=== PATIENT | female | born 1975 | race Caucasian/White ===

== ENCOUNTER 2016-08-11 17:21 | Inpatient (IN) | payer SELFPAY ==
[2016-08-11] MEDS ORDERED: HYDROCODONE/ACETAMINOPHEN 5-325 MG TABLET PO ONE (17:43)
--- NOTE | 2016-08-11 17:50 | ER Document Report ---
ED GI/ - General Chief Complaint: Flank Pain Stated Complaint: ABDOMINAL/BACK PAIN Time Seen by Provider: 08/11/16 17:38 Notes: The patient is a 40-year-old female, past medical history endometriosis, partial hysterectomy with removal of her uterus and one of her ovaries, PCOS, presents with intermittent right flank pain that is now constant. She has not had pain like this before. She denies dysuria, hematuria, current nausea or vomiting, diarrhea, constipation, fevers, vaginal bleeding or discharge. TRAVEL OUTSIDE OF THE [place] IN LAST 30 DAYS: No - Related Data Allergies/Adverse Reactions: No Known Allergies Allergy (Unverified 08/11/16 17:38) Past Medical History - General Information source: Patient - Social History Smoking Status: Current Every Day Smoker Family History: Reviewed & Not Pertinent Patient has suicidal ideation: No Patient has homicidal ideation: No Renal/ Medical History: Denies: Hx Peritoneal Dialysis Review of Systems - Review of Systems Notes: REVIEW OF SYSTEMS: CONSTITUTIONAL: -fevers, -chills EENT: -eye pain, -difficulty swallowing, -nasal congestion CARDIOVASCULAR:-chest pain, -syncope. RESPIRATORY: -cough, -SOB GASTROINTESTINAL: -abdominal pain, - nausea, -vomiting, -diarrhea GENITOURINARY: -dysuria, -hematuria MUSCULOSKELETAL: +right flank pain, -neck pain SKIN: -rash or skin lesions. HEMATOLOGIC: -easy bruising or bleeding. LYMPHATIC: -swollen, enlarged glands. NEUROLOGICAL: -altered mental status or loss of consciousness, -headache, - neurologic symptoms PSYCHIATRIC: -anxiety, -depression. ALL OTHER SYSTEMS REVIEWED AND NEGATIVE. Physical Exam - Vital signs Vitals: Temp Pulse Resp BP Pulse Ox 97.5 F 115 H 20 102/78 97 08/11/16 17:31 08/11/16 17:31 08/11/16 17:31 08/11/16 17:31 08/11/16 17:31 - Notes Notes: PHYSICAL EXAMINATION: GENERAL: Uncomfortable. HEAD: Atraumatic, normocephalic. EYES: Pupils equal round and reactive to light, extraocular movements intact, sclera anicteric, conjunctiva are normal. ENT: nares patent, oropharynx clear without exudates. Moist mucous membranes. NECK: Normal range of motion, supple without lymphadenopathy LUNGS: Breath sounds clear to auscultation bilaterally and equal. No wheezes rales or rhonchi. HEART: Tachycardic ABDOMEN: Soft, nontender, normoactive bowel sounds. No guarding, no rebound. No masses appreciated. No CVA tenderness. EXTREMITIES: Normal range of motion, no pitting or edema. No cyanosis. NEUROLOGICAL: Cranial nerves grossly intact. Normal speech, normal gait. Normal sensory and motor exams. PSYCH: Normal mood, normal affect. SKIN: Warm, Dry, normal turgor, no rashes or lesions noted. Course - Re-evaluation Re-evalutation: 08/11/16 19:19 Pt remains tachycardic and in pain. She has a leukocytosis with WBCs 43.4, the rest of her labs are unremarkable and her CT scan without contrast does not show any acute processes. She has never been told that she has an elevated white count before. Will obtain CT with contrast to assess for any intraabdominal abscesses or any other acute processes. Lipase also added. Pt will also be transferred to main side of the ER for further evaluation and treatment. I have greeted and performed a rapid initial assessment of this patient. A comprehensive ED assessment and evaluation of the patient, analysis of test results and completion of the medical decision making process will be conducted by additional ED providers. - Vital Signs Vital signs: Temp Pulse Resp BP Pulse Ox 97.5 F 115 H 20 102/78 97 08/11/16 17:31 08/11/16 17:31 08/11/16 17:31 08/11/16 17:31 08/11/16 17:31 - Laboratory Result Diagrams: 08/11/16 17:56 08/11/16 17:56 Laboratory results interpreted by me: 08/11/16 08/11/16 08/11/16 17:56 17:56 18:13 WBC 43.4 H* RBC 5.39 H MCV 79 L MCH 26.1 L RDW 18.5 H Seg Neuts % (Manual) 88 H Lymphocytes % (Manual) 4 L Abs Neuts (Manual) 39.5 H Abs Monocytes (Manual) 2.2 H Glucose 123 H Urine Protein 30 H Ur Leukocyte Esterase SMALL H - Diagnostic Test Radiology reviewed: Image reviewed, Reports reviewed Radiology results interpreted by me: CT A/P W/O: NAD
[2016-08-11 18:38] LABS: ALANINE AMINOTRANSFERASE 23 U/L (9-52); ALBUMIN 4.4 g/dL (3.5-5.0); ALKALINE PHOSPHATASE 71 U/L (38-126); ANION GAP 15 (5-19); ASPARTATE AMINO TRANSFERASE 17 U/L (14-36); BILIRUBIN,DIRECT 0.3 mg/dL (0.0-0.4); BILIRUBIN,TOTAL 0.7 mg/dL (0.2-1.3); BLOOD UREA NITROGEN 18 mg/dL (7-20); CALCIUM 9.9 mg/dL (8.4-10.2); CARBON DIOXIDE 22 mmol/L (22-30); CHLORIDE 101 mmol/L (98-107); CREATININE RESULT 0.77 mg/dL (0.52-1.25); GLUCOSE 123 mg/dL (75-110); POTASSIUM 4.3 mmol/L (3.6-5.0); SODIUM 138.2 mmol/L (137-145); TOTAL PROTEIN 7.8 g/dL (6.3-8.2)
[2016-08-11 18:38] LABS: APPEARANCE,URINE CLOUDY; BILIRUBIN,URINE NEGATIVE (NEGATIVE); GLUCOSE, URINE NEGATIVE (NEGATIVE); KETONES,URINE NEGATIVE (NEGATIVE); LEUKOCYTE ESTERASE,URINE SMALL (NEGATIVE); NITRITE,URINE NEGATIVE (NEGATIVE); PROTEIN,URINE 30 mg/dL (NEGATIVE); URINE SPECIFIC GRAVITY 1.027; UROBILINOGEN,URINE NEGATIVE mg/dL (<2.0)
[2016-08-11 18:42] LABS: HEMATOCRIT 42.7 % (36.0-47.0); HEMOGLOBIN 14.1 g/dL (12.0-15.5); HGB HCT DIFFERENCE -0.4; MEAN CORPUSCULAR HEMOGLOBIN 26.1 pg (27.0-33.4); MEAN CORPUSCULAR HGB CONC 32.9 g/dL (32.0-36.0); MEAN CORPUSCULAR VOLUME 79 fl (80-97); RED BLOOD COUNT 5.39 10^6/uL (3.72-5.28); RED CELL DISTRIBUTION WIDTH 18.5 % (11.5-14.0)
[2016-08-11 18:53] LABS: BAND NEUTROPHILS % (MANUAL) 3 % (3-5); BASOPHILS % (MANUAL) 0 % (0-2); EOSINOPHILS % (MANUAL) 0 % (0-6); LYMPHOCYTES % (MANUAL) 4 % (13-45); TOTAL CELLS COUNTED 100
--- NOTE | 2016-08-11 18:56 | RADIOLOGY REPORT (SQ) ---
EXAM DESCRIPTION: CT LTD RENAL STONE PROTOCOL ON COMPLETED DATE/TIME: 08/11/2016 6:44 pm REASON FOR STUDY: left flank pain COMPARISON: None. TECHNIQUE: CT scan of the abdomen and pelvis performed without intravenous or oral contrast. Images reviewed with lung, soft tissue, and bone windows. Reconstructed coronal and sagittal MPR images revi ewed. All images stored on PACS. All CT scanners at this facility use dose modulation, iterative reconstruction, and/or weight based d osing when appropriate to reduce radiation dose to as low as reasonably achievable (ALARA). [facility]: Dose Right [facility]: CareDose [facility]: Dose Right [facility]: Teradose 4D [facility]: Smart CareWire RADIATION DOSE: Up-to-date CT equipment and radiation dose reduction techniques were employed. CTDIv ol: 4.9 mGy. DLP: 237 mGy-cm.mGy. LIMITATIONS: None. FINDINGS: LOWER CHEST: No significant findings. No nodules or infiltrates. NON-CONTRASTED LIVER, SPLEEN, ADRENALS: Evaluation limited by lack of IV contrast. No identified sign ificant masses. PANCREAS: No masses. No peripancreatic inflammatory changes. GALLBLADDER: No identified stones by CT criteria. No inflammatory changes to suggest cholecystitis. RIGHT KIDNEY AND URETER: No suspicious masses. Assessment limited by lack of IV contrast. No signif icant calcifications. No hydronephrosis or hydroureter. LEFT KIDNEY AND URETER: No suspicious masses. Assessment limited by lack of IV contrast. No signifi cant calcifications. No hydronephrosis or hydroureter. AORTA AND RETROPERITONEUM: No aneurysm. No retroperitoneal masses or adenopathy. BOWEL AND PERITONEAL CAVITY: No obvious masses or inflammatory changes. No free fluid. APPENDIX: Normal. PELVIS, BLADDER, AND ABDOMINAL WALL:No abnormal masses. No free fluid. Bladder normal. BONES: No significant findings. OTHER: No other significant finding. IMPRESSION: NO SIGNIFICANT OR ACUTE PROCESS IN THE ABDOMEN OR PELVIS. TECHNICAL DOCUMENTATION: JOB ID: [id number] Quality ID # [id number]: Final reports with documentation of one or more dose reduction techniques (e.g., Au tomated exposure control, adjustment of the mA and/or kV according to patient size, use of iterative reconstruction technique) 2010 [employer]- All Rights Reserved
[2016-08-11 19:01] LABS: ANISOCYTOSIS 1+; HYPOCHROMASIA SLIGHT; MICROCYTOSIS SLIGHT; POIKILOCYTOSIS SLIGHT; TOXIC GRANULATION SLIGHT
[2016-08-11 19:02] LABS: WHITE BLOOD COUNT 43.4 10^3/uL (4.0-10.5)
[2016-08-11] MEDS ORDERED: MORPHINE SULFATE 10 MG/ML INJ IV ONE (19:22)
[2016-08-11] MEDS ORDERED: NORMAL SALINE 1000 ML 1,000 ML IV ONE (19:23)
[2016-08-11] MEDS ORDERED: KETOROLAC TROMETHAMINE INJ/PF 30 MG/1 ML SDV IV ONE (19:23)
--- NOTE | 2016-08-11 22:43 | RADIOLOGY REPORT (SQ) ---
EXAM DESCRIPTION: CT ABD/PELVIS WITH IV ORAL COMPLETED DATE/TIME: 08/11/2016 10:17 pm REASON FOR STUDY: RLQ pain, WBC 44,000 COMPARISON: None. TECHNIQUE: CT scan of the abdomen and pelvis performed using helical scanning technique with dynamic intravenous contrast injection and oral contrast. Images reviewed with lung, soft tissue, and bone w indows. Reconstructed coronal and sagittal MPR images reviewed. Delayed images for evaluation of the urinary system also acquired. All images stored on PACS. All CT scanners at this facility use dose modulation, iterative reconstruction, and/or weight based d osing when appropriate to reduce radiation dose to as low as reasonably achievable (ALARA). [facility]: Dose Right [facility]: CareDose [facility]: Dose Right [facility]: Teradose 4D [facility]: [employer] CONTRAST TYPE AND DOSE: contrast/concentration: Isovue 370.00 mg/ml; Total Contrast Delivered: 62.0 ml; Total Saline Delivered: 65.0 ml RENAL FUNCTION: Creatinine 0.77 RADIATION DOSE: Up-to-date CT equipment and radiation dose reduction techniques were employed. CTDIv ol: 5.7 - 7.8 mGy. DLP: 670 mGy-cm.. LIMITATIONS: None. FINDINGS: LOWER CHEST: No significant findings. No nodules or infiltrates. LIVER: Normal size. No masses. No dilated ducts. SPLEEN: Normal size. No focal lesions. PANCREAS: No masses. No significant calcifications. No adjacent inflammation or peripancreatic fluid collections. Pancreatic duct not dilated. GALLBLADDER: No identified stones by CT criteria. No inflammatory changes to suggest cholecystitis. ADRENAL GLANDS: No significant masses or asymmetry. RIGHT KIDNEY AND URETER: No solid masses. No significant calcifications. No hydronephrosis or hyd roureter. LEFT KIDNEY AND URETER: No solid masses. No significant calcifications. No hydronephrosis or hydr oureter. AORTA AND VESSELS: No aneurysm. No dissection. Renal arteries, SMA, celiac without stenosis. RETROPERITONEUM: No retroperitoneal adenopathy, hemorrhage or masses. BOWEL AND PERITONEAL CAVITY: No masses or inflammatory changes. No free fluid or peritoneal masses. APPENDIX: Normal. PELVIS: No mass or free fluid. Normal bladder. ABDOMINAL WALL: No masses. No hernias. BONES: No significant or acute findings. OTHER: No other significant finding. IMPRESSION: NO SIGNIFICANT OR ACUTE FINDING IN THE ABDOMEN OR PELVIS ON CT SCAN WITH IV CONTRAST. TECHNICAL DOCUMENTATION: JOB ID: [id number] Quality ID # [id number]: Final reports with documentation of one or more dose reduction techniques (e.g., Au tomated exposure control, adjustment of the mA and/or kV according to patient size, use of iterative reconstruction technique) 2010 [employer]- All Rights Reserved
[2016-08-11] MEDS ORDERED: CEFTRIAXONE INJ 1000 MG VIAL IV ONE (23:21)
[2016-08-11] MEDS ORDERED: HYDROMORPHONE HCL INJ/PF 2 MG/ML AMPULE IV ONE (23:33)
[2016-08-12] MEDS ORDERED: NORMAL SALINE 1000 ML 1,000 ML IV ONE ×2 (02:56→04:48)
[2016-08-12] MEDS ORDERED: MORPHINE SULFATE 10 MG/ML INJ IV ONE (03:56)
--- NOTE | 2016-08-12 05:52 | ER Document Report ---
Doctor's Note Notes: 08/12/16 05:50 Care of this patient was transferred to [place] by Dr. Morales. In summary this is a patient who presented with flank pain and mild hypertension. Workup has been unrevealing including apparently 2 CTs of the abdomen pelvis with and without contrast that did not demonstrate any acute findings. Patient has remained hypotensive and actually has down trended since presentation. Patient's laboratories are notable for profound leukocytosis at 43 with a neutrophil predominance but no blasts or bandemia. Patient's pain is uncontrolled here with IV opiates by the prior providers. She has received 2 L of IV fluid without any response in her blood pressure. She remains well-appearing, no tachycardia, no signs or symptoms consistent with shock. Patient at baseline as blood pressures apparently in the 90s. I discussed this case with Dr. Braun hospitalist who has refused to admit this patient to a non-ICU level of care given her blood pressure. No ICU beds are available at this facility. Clinically this patient does not appear to meet ICU criteria and has not actually been assessed by the hospitalist prior to him declining to admit her. I have contacted [facility] and requested a transfer given that I am unable to admit this patient here. 08/12/16 06:33 I have discussed this case with at [facility]. He agrees patient does not require an ICU bed given the asymptomatic nature of her hypotension. was conferenced into this conversation and has continued to decline to admit the patient given concerns about future decompensation. I have discussed with the patient and her daughter at the bedside. They have adamantly refused transfer to [facility] stating that they do not have a personal vehicle to get their and do not agree with the need for transfer or the willingness to pay for transfer associated costs. I did administer 0.4 mg of naloxone with some improvement of patient's blood pressure back to what appears to be her baseline of 96 on 57. Again patient appears well, is in no distress whatsoever and I do not believe her mild hypotension related to sepsis in fact patient has no infectious source whatsoever. She has a normal lactate, no tachycardia, no tachypnea. Chest x-ray and urinalysis are unremarkable. She has no skin findings on exam and 2 CTs the abdomen pelvis have been noted to be normal. I do not believe her leukocytosis is infectious in origin and much more concerned about a new acute malignancy. I have again discussed this with Dr. Braun who states he will pass this to the day team for consideration of admission.
--- NOTE | 2016-08-12 06:09 | RADIOLOGY REPORT (SQ) ---
EXAM DESCRIPTION: CHEST SINGLE VIEW COMPLETED DATE/TIME: 08/12/2016 5:57 am REASON FOR STUDY: leukocytosis, hypotension COMPARISON: None. EXAM PARAMETERS: NUMBER OF VIEWS: One view. TECHNIQUE: Single frontal radiographic view of the chest acquired. RADIATION DOSE: NA LIMITATIONS: None. FINDINGS: LUNGS AND PLEURA: Prominent interstitium. MEDIASTINUM AND HILAR STRUCTURES: No masses. Contour normal. HEART AND VASCULAR STRUCTURES: Heart normal in size. Normal vasculature. BONES: No acute findings. HARDWARE: None in the chest. OTHER: No other significant finding. IMPRESSION: NO ACUTE RADIOGRAPHIC FINDING IN THE CHEST. TECHNICAL DOCUMENTATION: JOB ID: [id number]
[2016-08-12] MEDS ORDERED: NALOXONE HCL INJ/PF 0.4 MG/1 ML SDV IV ONE (06:13)
[2016-08-12] MEDS ORDERED: NALOXONE HCL INJ/PF 0.4 MG/1 ML SDV ONE (06:18)
[2016-08-12] MEDS ORDERED: ONDANSETRON HCL INJ/PF 4 MG/2 ML SDV IV PRN (08:09)
[2016-08-12] MEDS ORDERED: ACETAMINOPHEN 325 MG TABLET PO PRN (08:09)
[2016-08-12] MEDS ORDERED: NORMAL SALINE 1000 ML 1,000 ML IV PRN (08:09)
[2016-08-12] MEDS ORDERED: MAG HYDROX/AL HYDROX/SIMETH SUSP 30 ML UDCUP PO PRN (08:09)
[2016-08-12] MEDS ORDERED: MORPHINE SULFATE 10 MG/ML INJ IV PRN (08:13)
[2016-08-12] MEDS ORDERED: NORMAL SALINE 1000 ML 3,000 ML IV ONE (08:14)
[2016-08-12] MEDS ORDERED: KETOROLAC TROMETHAMINE INJ/PF 30 MG/1 ML SDV IV ONE (08:15)
[2016-08-12] MEDS ORDERED: FLUCONAZOLE 100 MG TABLET PO ONE (10:30)
[2016-08-12 10:34] LABS: CHLAM PCR NOT DETECTED (NOT DETECT)
[2016-08-12 11:05] LABS: ABSOLUTE BASOPHILS # (AUTO) 0.1 10^3/uL (0.0-0.2); ABSOLUTE LYMPHOCYTES (AUTO) 1.2 10^3/uL (0.5-4.7); ABSOLUTE MONOCYTES (AUTO) 0.6 10^3/uL (0.1-1.4); BASOPHILS % (AUTO) 0.3 % (0-2); EOSINOPHILS % (AUTO) 0.2 % (0-6); HEMATOCRIT 30.8 % (36.0-47.0); HGB HCT DIFFERENCE -1.1; LYMPHOCYTES % (AUTO) 5.9 % (13-45); MEAN CORPUSCULAR HEMOGLOBIN 26.4 pg (27.0-33.4); MEAN CORPUSCULAR HGB CONC 32.1 g/dL (32.0-36.0); MEAN CORPUSCULAR VOLUME 82 fl (80-97); MONOCYTES % (AUTO) 3.1 % (3-13); RED BLOOD COUNT 3.75 10^6/uL (3.72-5.28); RED CELL DISTRIBUTION WIDTH 18.3 % (11.5-14.0); SEGMENTED NEUTROPHILS % (AUTO) 90.5 % (42-78); WHITE BLOOD COUNT 19.9 10^3/uL (4.0-10.5)
[2016-08-12 11:15] LABS: HEMOGLOBIN 9.9 g/dL (12.0-15.5)
[2016-08-12 11:19] LABS: ALANINE AMINOTRANSFERASE 31 U/L (9-52); ALBUMIN 2.5 g/dL (3.5-5.0); ALKALINE PHOSPHATASE 51 U/L (38-126); ANION GAP 6 (5-19); ASPARTATE AMINO TRANSFERASE 15 U/L (14-36); BILIRUBIN,DIRECT 0.3 mg/dL (0.0-0.4); BILIRUBIN,TOTAL 0.3 mg/dL (0.2-1.3); BLOOD UREA NITROGEN 15 mg/dL (7-20); CALCIUM 7.5 mg/dL (8.4-10.2); CARBON DIOXIDE 19 mmol/L (22-30); CHLORIDE 117 mmol/L (98-107); CREATININE RESULT 0.61 mg/dL (0.52-1.25); GLUCOSE 97 mg/dL (75-110); MAGNESIUM 1.8 mg/dL (1.6-2.3); POTASSIUM 3.6 mmol/L (3.6-5.0); SODIUM 141.7 mmol/L (137-145); TOTAL PROTEIN 5.1 g/dL (6.3-8.2)
[2016-08-12] MEDS: ENOXAPARIN SODIUM INJ 40 MG/0.4 ML DISP.SYRIN SUBCUT SCH (11:23)
[2016-08-12] MEDS: DOXYCYCLINE HYCLATE 100 MG in DEXTROSE 5%-WATER 250 ML IV SCH ×2 (11:23→22:48)
[2016-08-12 11:59] LABS: ADD HIVPANEL? NO; HIV (1 AND 2) ANTIBODY NEGATIVE (NEGATIVE)
[2016-08-12] MEDS: METRONIDAZOLE 500 MG TABLET PO SCH ×2 (13:38→22:48)
[2016-08-12] MEDS: OXYCODONE-ACETAMINOPHEN 5-325 MG TABLET PO PRN ×3 (13:41→22:48)
[2016-08-12 14:07] LABS: PATH REVIEW PATHOLOGIST REVIEWED
[2016-08-12] MEDS ORDERED: NICOTINE 14 MG/24 HR PATCH.TD24 TD PRN (16:33)
[2016-08-12] MEDS: KETOROLAC TROMETHAMINE INJ/PF 30 MG/1 ML SDV IV PRN (16:44)
--- NOTE | 2016-08-12 16:49 | PDOC H&P ---
History of Present Illness Admission Date/PCP: no pcp History of Present Illness: May VENANCIO is a 40 year old female past medical history of PCO S and endometriosis ultimately resulting in a hysterectomy and unilateral salpingo- oophorectomy who presented to the emergency department with complaints of right lower quadrant pain. Patient reports that she started having some discomfort starting hours prior. She reports associated chills subjective fever and nausea and vomiting as well as right lower quadrant pain. Patient reports that she began having diarrhea after having her CAT scan today. She denies any hematochezia or melena. Patient reports that she takes aspirin and Fioricet at home. Department, patient is found to have a mild UTI and given a small amount of IV fluids. Patient received multiple doses of narcotics resulting in hypotension requiring the use of Narcan to bring her blood pressure back up. On review of the patient's on the [place] database for narcotics and controlled substances patient is found to be filling Suboxone as recently as June 2016. Patient reports that she had not been taking it at that time and had been diverting this medication for someone else. Patient is referred to hospital service for evaluation of sepsis. Past Medical History Past Medical History: pcos, endometriosis Past Surgical History Past Surgical History: Reports: Hysterectomy Social History Smoking Status: Current Every Day Smoker Cigarettes Packs Per Day: 1 Frequency of Alcohol Use: Rare Hx Recreational Drug Use: No Hx Prescription Drug Abuse: Yes - Advance Directive Resuscitation Status: Full Code Surrogate healthcare decision maker:: Sreedhar Mckinney Family History Family History: CAD, DM, Malignancy Parental Family History Reviewed: Yes Children Family History Reviewed: Yes Sibling(s) Family History Reviewed.: Yes Medication/Allergy Home Medications: Butalb/Acetaminophen/Caffeine [Fioricet (50-325-40 mg) Tablet] 1 tab PO Q4HP PRN 08/12/16 Allergies/Adverse Reactions: No Known Allergies Allergy (Verified 08/11/16 21:41) Review of Systems Constitutional: PRESENT: chills, fatigue, fever(s). ABSENT: headache(s), weight gain, weight loss Eyes: ABSENT: visual disturbances Ears: ABSENT: hearing changes Cardiovascular: ABSENT: chest pain, dyspnea on exertion, edema, orthropnea, palpitations Respiratory: ABSENT: cough, hemoptysis Gastrointestinal: PRESENT: abdominal pain, diarrhea, nausea, vomiting. ABSENT: constipation, hematemesis, hematochezia Genitourinary: ABSENT: dysuria, hematuria Musculoskeletal: ABSENT: joint swelling Integumentary: ABSENT: rash, wounds Neurological: ABSENT: abnormal gait, abnormal speech, confusion, dizziness, focal weakness, syncope Psychiatric: ABSENT: anxiety, depression, homidical ideation, suicidal ideation Endocrine: ABSENT: cold intolerance, heat intolerance, polydipsia, polyuria Hematologic/Lymphatic: ABSENT: easy bleeding, easy bruising Physical Exam Vital Signs: Temp Pulse Resp BP Pulse Ox 98.0 F 73 23 H 94/65 L 99 08/12/16 06:10 08/12/16 03:08 08/12/16 08:11 08/12/16 08:11 08/12/16 08:11 Intake & Output 08/11/16 08/12/16 08/13/16 06:59 06:59 06:59 Weight 57.1 kg General appearance: PRESENT: no acute distress, well-developed, well-nourished Head exam: PRESENT: atraumatic, normocephalic Eye exam: PRESENT: conjunctiva pink, EOMI, PERRLA. ABSENT: scleral icterus Ear exam: PRESENT: normal external ear exam Mouth exam: PRESENT: dry mucosa, tongue midline Neck exam: ABSENT: JVD, lymphadenopathy, thyromegaly, tracheal deviation Respiratory exam: PRESENT: clear to auscultation deborah, prolonged expiratory phas , symmetrical, unlabored. ABSENT: accessory muscle use, crackles, rales, rhonchi, tachypnea, wheezes Cardiovascular exam: PRESENT: RRR, +S1, +S2. ABSENT: diastolic murmur, gallop, rubs, systolic murmur Pulses: PRESENT: normal dorsalis pedis pul Vascular exam: PRESENT: normal capillary refill GI/Abdominal exam: PRESENT: guarding - voluntary, soft, other - reported pain out of proportion to physical exam. ABSENT: distended, firm, mass, Sloan's sign, normal bowel sounds, organolmegaly, rebound, rigid, tenderness Rectal exam: PRESENT: deferred Gentrourinary exam: PRESENT: other - , Condyloma at 5:00 Thick whitish yellow discharge Erythema of the vaginal mcneill without direct visualization of the cervix Enlarged left ovary Extremities exam: PRESENT: full ROM. ABSENT: calf tenderness, clubbing, pedal edema Neurological exam: PRESENT: alert, awake, oriented to person, oriented to place , oriented to time, oriented to situation, CN II-XII grossly intact. ABSENT: motor sensory deficit Psychiatric exam: PRESENT: normal mood, unusual affect. ABSENT: homicidal ideation, suicidal ideation Skin exam: PRESENT: dry, intact, warm. ABSENT: cyanosis, rash Results Laboratory Results: 08/11/16 17:56 08/11/16 17:56 08/11/16 08/11/16 08/11/16 17:56 17:56 17:56 WBC 43.4 H* RBC 5.39 H Hgb 14.1 Hct 42.7 MCV 79 L MCH 26.1 L MCHC 32.9 RDW 18.5 H Plt Count 289 Seg Neutrophils % Not Reportable Lymphocytes % Not Reportable Monocytes % Not Reportable Eosinophils % Not Reportable Basophils % Not Reportable Absolute Neutrophils Not Reportable Absolute Lymphocytes Not Reportable Absolute Monocytes Not Reportable Absolute Eosinophils Not Reportable Absolute Basophils Not Reportable Sodium 138.2 Potassium 4.3 Chloride 101 Carbon Dioxide 22 Anion Gap 15 BUN 18 Creatinine 0.77 Est GFR ( Amer) > 60 Est GFR (Non-Af Amer) > 60 Glucose 123 H Lactic Acid Calcium 9.9 Total Bilirubin 0.7 AST 17 ALT 23 Alkaline Phosphatase 71 Total Protein 7.8 Albumin 4.4 Lipase 20.3 L Urine Color Urine Appearance Urine pH Ur Specific [place] Urine Protein Urine Glucose (UA) Urine Ketones Urine Blood Urine Nitrite Ur Leukocyte Esterase Urine WBC (Auto) Urine RBC (Auto) 08/11/16 08/11/16 18:13 20:30 WBC RBC Hgb Hct MCV MCH MCHC RDW Plt Count Seg Neutrophils % Lymphocytes % Monocytes % Eosinophils % Basophils % Absolute Neutrophils Absolute Lymphocytes Absolute Monocytes Absolute Eosinophils Absolute Basophils Sodium Potassium Chloride Carbon Dioxide Anion Gap BUN Creatinine Est GFR ( Amer) Est GFR (Non-Af Amer) Glucose Lactic Acid 1.3 Calcium Total Bilirubin AST ALT Alkaline Phosphatase Total Protein Albumin Lipase Urine Color DARK YELLOW Urine Appearance CLOUDY Urine pH 5.0 Ur Specific [place] 1.027 Urine Protein 30 H Urine Glucose (UA) NEGATIVE Urine Ketones NEGATIVE Urine Blood NEGATIVE Urine Nitrite NEGATIVE Ur Leukocyte Esterase SMALL H Urine WBC (Auto) 13 Urine RBC (Auto) 3 Impressions: Abdomen/Pelvis CT 08/11/16 00:00 IMPRESSION: NO SIGNIFICANT OR ACUTE FINDING IN THE ABDOMEN OR PELVIS ON CT SCAN WITH IV CONTRAST. Limited or Localized CT 08/11/16 17:39 IMPRESSION: NO SIGNIFICANT OR ACUTE PROCESS IN THE ABDOMEN OR PELVIS. Chest X-Ray 08/12/16 05:04 IMPRESSION: NO ACUTE RADIOGRAPHIC FINDING IN THE CHEST. Assessment & Plan - Diagnosis (1) Sepsis Qualifiers: Sepsis type: sepsis due to unspecified organism Qualified Code(s): A41.9 - Sepsis, unspecified organism Is this a current diagnosis for this admission?: YesPlan: Likely secondary to UTI and criteria met on admission Place on Rocephin. (2) Dehydration Is this a current diagnosis for this admission?: YesPlan: Significantly dehydrated and we will appropriately bolus patient. (3) UTI (urinary tract infection) Qualifiers: Urinary tract infection type: acute cystitis Hematuria presence: without hematuria Qualified Code(s): N30.00 - Acute cystitis without hematuria Is this a current diagnosis for this admission?: YesPlan: Underwent CT without evidence of pyelonephritis or obstructing stone. Place on Rocephin and await culture (4) Trichomonas vaginalis infection Is this a current diagnosis for this admission?: YesPlan: Oral flagyl 500mg po tid for seven days (5) Candidiasis of female genitalia Is this a current diagnosis for this admission?: YesPlan: Fluconazole x1 (6) Tobacco abuse Is this a current diagnosis for this admission?: YesPlan: Nicotine patch prn (7) Opiate abuse, episodic Is this a current diagnosis for this admission?: YesPlan: Patient reports intentionally diverting narcotics ("for years") and also being placed on Suboxone for weaning off of large amounts of narcotics from previous treatment of PCOS and Endometriosis. (8) Left ovarian enlargement Is this a current diagnosis for this admission?: YesPlan: Consult AUDITING SPECIALIST and obtain transvaginal us - Time Time Spent: 50 to 70 Minutes Medications reviewed and adjusted accordingly: Yes Anticipated discharge: Home Within: within 48 hours - Inpatient Certification Based on my medical assessment, after consideration of the patient's comorbidities, presenting symptoms, or acuity I expect that the services needed warrant INPATIENT care.: Yes I certify that my determination is in accordance with my understanding of Medicare's requirements for reasonable and necessary INPATIENT services [42 CFR 412.3e].: Yes Medical Necessity: Need For IV Fluids, Need for IV Antibiotics Post Hospital Care: D/C Analytical Research Program Manager Documentation
--- NOTE | 2016-08-12 16:54 | RADIOLOGY REPORT (SQ) ---
EXAM DESCRIPTION: U/S NON OB PEL TV W/DOPPLER COMPLETED DATE/TIME: 08/12/2016 4:43 pm REASON FOR STUDY: abdominal pain, pcos, enlarged left ovary COMPARISON: CT ABDOMEN PELVIS 08/11/2016 TECHNIQUE: Dynamic and static grayscale images acquired of the pelvis via transvaginal approach and recorded on PACS. Additional selected color Doppler and spectral images recorded. LIMITATIONS: None. FINDINGS: UTERUS: Post hysterectomy ENDOMETRIAL STRIPE: Not applicable CERVIX: Not applicable RIGHT OVARY: Right ovary measures 3.3 x 2.9 x 1.6 cm in size. 14 mm follicular cyst right ovary. Sm all amount of right adnexal free fluid. RIGHT OVARY DOPPLER: Normal arterial vascular flow without evidence for torsion. LEFT OVARY: Not visualized LEFT OVARY DOPPLER: Not applicable FREE FLUID: Small amount of free pelvic fluid around the right ovary, question recently ruptured righ t ovarian cyst OTHER: No other significant finding. IMPRESSION: Post hysterectomy Left ovary not visualized Small amount of right adnexal free fluid surrounding a normal size ovary with small follicular cysts present. TECHNICAL DOCUMENTATION: JOB ID: [id number]- All Rights Reserved
[2016-08-12 18:57] LABS: URINE METHADONE SCREEN NEGATIVE; URINE PHENCYCLIDINE SCREEN NEGATIVE
[2016-08-12 19:01] LABS: URINE BARBITURATES SCREEN UNCONFIRMED POSITIVE; URINE OPIATES LOW UNCONFIRMED POSITIVE
--- NOTE | 2016-08-12 19:08 | PDOC CONSULTATION ---
Consultation Consult Date: 08/12/16 Attending physician:: CANDI STRICKLAND Consult reason:: abdominal/pelvic pain History of Present Illness Admission Date/PCP: 08/12/16 08:09 Patient complains of: Abdomen and pelvic pain since 2 nights ago. History of Present Illness: JENNIFER CRAFT is a 40 year old with past medical history of PCOS and endometriosis who is s/p Hysterectomy with USO (right ovary remaining per US today) for endometriosis and pelvic pain (rec'd DepotLupron pre and postoperatively per patient) presents through the ER for new onset right lower quadrant pain which began as mild achy and then progressed to sharp. Patient reports that she started having some discomfort starting hours prior. She reports associated chills subjective fever and nausea and vomiting as well as right lower quadrant pain which began approximately 2 nights ago and precipitated her ER visit last night. Patient reports that she began having diarrhea after having her CAT scan today. She denies any hematochezia or melena. Patient reports that she takes aspirin and Fioricet at home but denies any other medications including the Suboxone which was filled multiple times in [place], [place] but from provider in [place], [place]. Per report and review of chart pt was diverting her suboxone and not taking it herself. She was reportedly given Rx for suboxone to help wean her from her narcotic rx from her endometriosis pain. She however reports that she has not had pain from her endometriosis since her hysterectomy approximately 12 years ago. She denies h/o abnl pap smears but has noted genital condyloma. She denies sexual intercourse for approx 2 months. She was admitted by Dr. Snow and hospitalist service due to eval for elevated WBC eval for sepsis. RECREATIONAL VEHICLE REPAIRER consulted due to abdominal/pelvic pain. CT scan with and without contrast was unremarkable. Past Medical History LMP: hyst Gynecological Infection: Yes Baby 1 Delivery: Spontaneous Vaginal Delivery Baby 3 Delivery: Spontaneous Vaginal Delivery Cardiac Medical History: Reports: None Pulmonary Medical History: Reports: None Neurological Medical History: Reports: Migraine Endocrine Medical History: Reports: None Renal/ Medical History: Reports: None Malignancy Medical History: Reports: None GI Medical History: Reports: None Musculoskeltal Medical History: Reports: None Skin Medical History: Reports: None Psychiatric Medical History: Reports: Tobacco Dependency Traumatic Medical History: Reports: None Infectious Medical History: Reports: None Social History Information Source: Patient, Relative Lives with: Family Smoking Status: Current Every Day Smoker Cigarettes Packs Per Day: 1 Number of Years Smokin Last Time Smoked: 08/11/2016 Frequency of Alcohol Use: Rare Hx Recreational Drug Use: No Drugs: None Hx Prescription Drug Abuse: Yes - Advance Directive Resuscitation Status: Full Code Family History Family History: CAD, DM, Malignancy Parental Family History Reviewed: No Children Family History Reviewed: NA Sibling(s) Family History Reviewed.: NA Medication/Allergy Home Medications: Butalb/Acetaminophen/Caffeine [Fioricet (50-325-40 mg) Tablet] 1 tab PO Q4HP PRN 08/12/16 Allergies/Adverse Reactions: No Known Allergies Allergy (Verified 08/11/16 21:41) Review of Systems Constitutional: PRESENT: chills - non currently. ABSENT: fever(s), headache(s) , weight gain, weight loss Gastrointestinal: PRESENT: abdominal pain, diarrhea, nausea, vomiting. ABSENT: bloating, coffee ground emesis, constipation, heartburn, hematemesis, hematochezia, melena Genitourinary: ABSENT: dysuria, hematuria Musculoskeletal: ABSENT: joint swelling Integumentary: ABSENT: rash, wounds Neurological: ABSENT: abnormal gait, abnormal speech, confusion, dizziness, focal weakness, syncope Psychiatric: ABSENT: anxiety, depression, homidical ideation, suicidal ideation Endocrine: ABSENT: cold intolerance, heat intolerance, polydipsia, polyuria Hematologic/Lymphatic: ABSENT: easy bleeding, easy bruising Physical Exam - Physical Exam Vital Signs: Temp Pulse Resp BP Pulse Ox 98.0 F 62 16 130/80 H 95 08/12/16 15:28 08/12/16 15:28 08/12/16 15:28 08/12/16 15:28 08/12/16 15:28 Intake & Output 08/11/16 08/12/16 08/13/16 06:59 06:59 06:59 Intake Total 330 Balance 330 General appearance: PRESENT: no acute distress, well-developed, well-nourished Head exam: PRESENT: atraumatic, normocephalic Respiratory exam: PRESENT: clear to auscultation deborah, symmetrical, unlabored. ABSENT: decreased breath sounds, tachypnea Cardiovascular exam: PRESENT: RRR. ABSENT: diastolic murmur, rubs, systolic murmur Vascular exam: PRESENT: normal capillary refill GI/Abdominal exam: PRESENT: normal bowel sounds, soft. ABSENT: distended, guarding, mass, organolmegaly, rebound, tenderness Rectal exam: PRESENT: deferred Gentrourinary exam: PRESENT: other - condyloma, BME and SSE with vaginal cuff intact but increased vaginal discharge and odor noted. Wet prep and eval already done. Extremities exam: PRESENT: full ROM. ABSENT: calf tenderness, clubbing, pedal edema Musculoskeletal exam: PRESENT: ambulatory Neurological exam: PRESENT: alert, awake, oriented to person, oriented to place , oriented to time, oriented to situation, CN II-XII grossly intact. ABSENT: motor sensory deficit Psychiatric exam: PRESENT: appropriate affect, normal mood. ABSENT: homicidal ideation, suicidal ideation Skin exam: PRESENT: dry, intact, warm. ABSENT: cyanosis, rash - Gynecological Exam Labia: lesions - condyoma Urethra: normal Introitus: discharge Perineum: lesions - condyloma Vagina: discharge Cervix: other - absent Cervix: other - absent Uterus: other - absent Adhexa: tender, other - no masses Rectal: not examined Rectovaginal: not examined Result Laboratory Results: 08/12/16 10:47 08/12/16 10:47 08/12/16 08/12/16 08/12/16 10:47 10:47 13:40 WBC 19.9 H RBC 3.75 Hgb 9.9 L D Hct 30.8 L MCV 82 MCH 26.4 L MCHC 32.1 RDW 18.3 H Plt Count 164 Seg Neutrophils % 90.5 H Lymphocytes % 5.9 L Monocytes % 3.1 Eosinophils % 0.2 Basophils % 0.3 Absolute Neutrophils 18.0 H Absolute Lymphocytes 1.2 Absolute Monocytes 0.6 Absolute Eosinophils 0.0 Absolute Basophils 0.1 Sodium 141.7 Potassium 3.6 Chloride 117 H Carbon Dioxide 19 L Anion Gap 6 BUN 15 Creatinine 0.61 Est GFR ( Amer) > 60 Est GFR (Non-Af Amer) > 60 Glucose 97 Calcium 7.5 L Magnesium 1.8 Total Bilirubin 0.3 AST 15 ALT 31 Alkaline Phosphatase 51 Total Protein 5.1 L Albumin 2.5 L Stool Occult Blood Stool for White Cells RARE H 08/12/16 13:40 WBC RBC Hgb Hct MCV MCH MCHC RDW Plt Count Seg Neutrophils % Lymphocytes % Monocytes % Eosinophils % Basophils % Absolute Neutrophils Absolute Lymphocytes Absolute Monocytes Absolute Eosinophils Absolute Basophils Sodium Potassium Chloride Carbon Dioxide Anion Gap BUN Creatinine Est GFR ( Amer) Est GFR (Non-Af Amer) Glucose Calcium Magnesium Total Bilirubin AST ALT Alkaline Phosphatase Total Protein Albumin Stool Occult Blood NEGATIVE Stool for White Cells Impressions: Abdomen/Pelvis CT 08/11/16 00:00 IMPRESSION: NO SIGNIFICANT OR ACUTE FINDING IN THE ABDOMEN OR PELVIS ON CT SCAN WITH IV CONTRAST. Limited or Localized CT 08/11/16 17:39 IMPRESSION: NO SIGNIFICANT OR ACUTE PROCESS IN THE ABDOMEN OR PELVIS. Transvaginal US 08/12/16 00:00 IMPRESSION: Post hysterectomy Left ovary not visualized Small amount of right adnexal free fluid surrounding a normal size ovary with small follicular cysts present. Chest X-Ray 08/12/16 05:04 IMPRESSION: NO ACUTE RADIOGRAPHIC FINDING IN THE CHEST. Assessment & Plan - Diagnosis (1) Trichomonas vaginalis infection Is this a current diagnosis for this admission?: YesPlan: Reviewed diagnosis and treatment with pt and reviewed treatment options. Antibiotic regimen options are Flagyl 500mg po BID for 7 days OR Flagyl 2 grams po once OR Tinidazole 2 grams po once Reviewed patient that this is an STD and partner should be treated prior to having intercourse with that person again. Prevention of STDs with condoms. See additional diagnosis for additional recommendations. (2) Candidiasis of female genitalia Is this a current diagnosis for this admission?: YesPlan: Would recommend Diflucan 150mg po now but also would recommend repeat dose after completion of antibiotics (3) Ovarian cyst, right Is this a current diagnosis for this admission?: YesPlan: Cyst appears follicular with minimal amount of free fluid. No e/o torsion. Pain on exam is out of proportion to her findings. Unlikely that 14mm cyst is the cause of her pain even if possible recently rupture with such minimal free fluid on US. Even if she is experiencing pain out of proportion to exam findings then recommendations for these findings is pain management and expectant management. (4) Pelvic inflammation in female Is this a current diagnosis for this admission?: YesPlan: Peritonitis on exam with unknown etiology unless from recent ovarian cyst rupture. Pt is s/p hysterectomy with intact vaginal cuff which makes true PID very unlikely since there is no route for ascending infection to travel. However, due to elevated WBC and nonspecific findings on exam it is reasonable to give course of PID treatment.] Recommended course: Rocephin 250mg IM once Doxycycline 100mg po BID for 14 days Flagyl 500mg po BID for 14 days (would extend trichomonas dosing by 7 days to cover for PID treatment) Recommend f/u in office at [facility] [phone] (5) Diarrhea Qualifiers: Diarrhea type: unspecified type Qualified Code(s): R19.7 - Diarrhea , unspecified Is this a current diagnosis for this admission?: YesPlan: eval and manage by admitting physician (6) Leukocytosis Qualifiers: Leukocytosis type: unspecified Qualified Code(s): D72.829 - Elevated white blood cell count, unspecified Is this a current diagnosis for this admission?: YesPlan: No source yet for infection. WBC however decreased fro 43 to 19 with IVF. Urine culture no growth after one day. Blood cultures pending. Stool studies pending. Admitting physician managing. (7) Pelvic pain Is this a current diagnosis for this admission?: YesPlan: Pt unable to tolerate IV pain meds due to hypotension and requiring narcan in ER. currently on toradol and percocet. Pt with h/o suboxone abuse and diverting meds. Potentially offer ultram for outpt if needed. - Time Time Spent: 50 to 70 Minutes Critical Time spent with patient: Less than 15 minutes Medications reviewed and adjusted accordingly: Yes Anticipated discharge: Home Within: within 48 hours - Inpatient Certification Based on my medical assessment, after consideration of the patient's comorbidities, presenting symptoms, or acuity I expect that the services needed warrant INPATIENT care.: Yes I certify that my determination is in accordance with my understanding of Medicare's requirements for reasonable and necessary INPATIENT services [42 CFR 412.3e].: Yes Medical Necessity: Failure to Improve With Outpatient Therapy, Need Close Monitoring Due to Risk of Patient Decompensation, Need for Pain Control - Plan Summary Plan Summary: Sign off for now. Reconsult if needed. Will make oncoming physician aware of pt in hospital. Past Surgical History Past Surgical History: Reports: Hysterectomy, Other - Reports h/o 7-8 Laparoscopies for endometriosis. H/o right breast bx b9
[2016-08-12] MEDS: CIPROFLOXACIN 400 MG/D5W RTU 400 MG/200 ML RTUPB IV SCH (20:13)
[2016-08-12] MEDS ORDERED: CEFTRIAXONE 2 GM/D5W RTU 2 GM/50 ML RTUPB IV SCH (22:00)
[2016-08-12] MEDS: TRAMADOL HCL 50 MG TABLET PO PRN (23:57)
[2016-08-13] MEDS: METRONIDAZOLE 500 MG TABLET PO SCH ×3 (05:51→22:29)
[2016-08-13] MEDS: TRAMADOL HCL 50 MG TABLET PO PRN (05:51)
[2016-08-13 06:15] LABS: ABSOLUTE EOSINOPHILS # (AUTO) 0.1 10^3/uL (0.0-0.6); ABSOLUTE LYMPHOCYTES (AUTO) 2.2 10^3/uL (0.5-4.7); ABSOLUTE MONOCYTES (AUTO) 0.6 10^3/uL (0.1-1.4); ABSOLUTE NEUT (AUTO) 9.7 10^3/uL (1.7-8.2); BASOPHILS % (AUTO) 0.2 % (0-2); EOSINOPHILS % (AUTO) 0.7 % (0-6); HEMOGLOBIN 10.2 g/dL (12.0-15.5); HGB HCT DIFFERENCE -1.4; LYMPHOCYTES % (AUTO) 17.6 % (13-45); MEAN CORPUSCULAR HEMOGLOBIN 26.3 pg (27.0-33.4); MEAN CORPUSCULAR VOLUME 82 fl (80-97); MONOCYTES % (AUTO) 4.8 % (3-13); RED CELL DISTRIBUTION WIDTH 18.6 % (11.5-14.0); SEGMENTED NEUTROPHILS % (AUTO) 76.7 % (42-78); WHITE BLOOD COUNT 12.6 10^3/uL (4.0-10.5)
[2016-08-13 06:30] LABS: ANION GAP 7 (5-19); BLOOD UREA NITROGEN 9 mg/dL (7-20); CALCIUM 8.6 mg/dL (8.4-10.2); CARBON DIOXIDE 16 mmol/L (22-30); CHLORIDE 119 mmol/L (98-107); CREATININE RESULT 0.66 mg/dL (0.52-1.25); GLUCOSE 83 mg/dL (75-110); POTASSIUM 3.7 mmol/L (3.6-5.0); SODIUM 141.7 mmol/L (137-145)
[2016-08-13 07:36] LABS: FOLATE 6.75 ng/mL (>2.76)
[2016-08-13] MEDS: CIPROFLOXACIN 400 MG/D5W RTU 400 MG/200 ML RTUPB IV SCH ×2 (08:24→20:44)
[2016-08-13] MEDS: OXYCODONE-ACETAMINOPHEN 5-325 MG TABLET PO PRN ×3 (08:33→22:29)
[2016-08-13] MEDS: DOXYCYCLINE HYCLATE 100 MG in DEXTROSE 5%-WATER 250 ML IV SCH (10:56)
[2016-08-13] MEDS: ENOXAPARIN SODIUM INJ 40 MG/0.4 ML DISP.SYRIN SUBCUT SCH (10:56)
[2016-08-13] MEDS ORDERED: OXYCODONE-ACETAMINOPHEN 5-325 MG TABLET PO PRN (11:19)
[2016-08-13] MEDS ORDERED: NORMAL SALINE 1000 ML 1,000 ML IV PRN (11:26)
[2016-08-13] MEDS ORDERED: PHENAZOPYRIDINE HCL 200 MG TABLET PO ONE (12:00)
[2016-08-13] MEDS: KETOROLAC TROMETHAMINE INJ/PF 30 MG/1 ML SDV IV PRN (12:20)
[2016-08-13] MEDS ORDERED: TRAMADOL HCL 50 MG TABLET PO PRN (12:28)
[2016-08-13] MEDS ORDERED: ONDANSETRON HCL INJ/PF 4 MG/2 ML SDV IV PRN (12:28)
[2016-08-13] MEDS ORDERED: KETOROLAC TROMETHAMINE INJ/PF 30 MG/1 ML SDV IV PRN (12:31)
[2016-08-13] MEDS ORDERED: MAG HYDROX/AL HYDROX/SIMETH SUSP 30 ML UDCUP PO PRN (12:33)
[2016-08-13] MEDS ORDERED: NICOTINE 14 MG/24 HR PATCH.TD24 TD PRN (12:33)
[2016-08-13] MEDS: PHENAZOPYRIDINE HCL 100 MG TABLET PO SCH ×2 (13:46→22:30)
--- NOTE | 2016-08-13 15:42 | PDOC PROGRESS REPORT ---
Subjective Progress Note for:: 08/13/16 Subjective:: Patient continues to complain of right-sided abdominal pain. She reports she would like to eat. Patient is examined with nurse present. Physical Exam Vital Signs: Temp Pulse Resp BP Pulse Ox 97.5 F 47 L 16 118/60 95 08/13/16 04:02 08/13/16 04:02 08/13/16 04:02 08/13/16 04:02 08/13/16 04:02 Intake & Output 08/12/16 08/13/16 08/14/16 06:59 06:59 06:59 Intake Total 4084 Balance 4084 Weight 54.5 kg Exam: GENERAL: No acute distress nontoxic appearing HEENT: Conjunctiva clear, nonicteric, moist mucous membranes, no JVD, midline trachea RESPIRATORY: Clear to auscultation bilaterally, no wheezes, no rhonchi CARDIAC: Regular rate and rhythm, no murmurs/gallops/rubs ABDOMEN: Soft, nondistended, nontender, positive bowel sounds, no rebound, no guarding; pain is out of proportion to physical examination EXTREMETIES: no cyanosis, no clubbing, no edema NEUROLOGIC: Alert, oriented to person/place/time, cranial nerves grossly intact without focal deficits SKIN: No rash, wounds PSYCH:flat Results Laboratory Results: 08/13/16 05:49 08/13/16 05:49 08/12/16 08/12/16 08/12/16 10:47 10:47 13:40 WBC 19.9 H RBC 3.75 Hgb 9.9 L D Hct 30.8 L MCV 82 MCH 26.4 L MCHC 32.1 RDW 18.3 H Plt Count 164 Seg Neutrophils % 90.5 H Lymphocytes % 5.9 L Monocytes % 3.1 Eosinophils % 0.2 Basophils % 0.3 Absolute Neutrophils 18.0 H Absolute Lymphocytes 1.2 Absolute Monocytes 0.6 Absolute Eosinophils 0.0 Absolute Basophils 0.1 Retic Count (auto) Absolute Retic Sodium 141.7 Potassium 3.6 Chloride 117 H Carbon Dioxide 19 L Anion Gap 6 BUN 15 Creatinine 0.61 Est GFR ( Amer) > 60 Est GFR (Non-Af Amer) > 60 Glucose 97 Calcium 7.5 L Magnesium 1.8 Iron TIBC % Saturation Ferritin Total Bilirubin 0.3 AST 15 ALT 31 Alkaline Phosphatase 51 Total Protein 5.1 L Albumin 2.5 L Vitamin B12 Folate Stool Occult Blood Stool for White Cells RARE H 08/12/16 08/13/16 08/13/16 13:40 05:49 05:49 WBC 12.6 H RBC 3.90 Hgb 10.2 L Hct 32.0 L MCV 82 MCH 26.3 L MCHC 32.0 RDW 18.6 H Plt Count 170 Seg Neutrophils % 76.7 Lymphocytes % 17.6 Monocytes % 4.8 Eosinophils % 0.7 Basophils % 0.2 Absolute Neutrophils 9.7 H Absolute Lymphocytes 2.2 Absolute Monocytes 0.6 Absolute Eosinophils 0.1 Absolute Basophils 0.0 Retic Count (auto) 0.80 Absolute Retic 0.031 Sodium 141.7 Potassium 3.7 Chloride 119 H Carbon Dioxide 16 L Anion Gap 7 BUN 9 Creatinine 0.66 Est GFR ( Amer) > 60 Est GFR (Non-Af Amer) > 60 Glucose 83 Calcium 8.6 Magnesium Iron 11.8 L TIBC 268 % Saturation 4 Ferritin 49.20 Total Bilirubin AST ALT Alkaline Phosphatase Total Protein Albumin Vitamin B12 451.0 Folate 6.75 Stool Occult Blood NEGATIVE Stool for White Cells Impressions: Abdomen/Pelvis CT 08/11/16 00:00 IMPRESSION: NO SIGNIFICANT OR ACUTE FINDING IN THE ABDOMEN OR PELVIS ON CT SCAN WITH IV CONTRAST. Limited or Localized CT 08/11/16 17:39 IMPRESSION: NO SIGNIFICANT OR ACUTE PROCESS IN THE ABDOMEN OR PELVIS. Transvaginal US 08/12/16 00:00 IMPRESSION: Post hysterectomy Left ovary not visualized Small amount of right adnexal free fluid surrounding a normal size ovary with small follicular cysts present. Chest X-Ray 08/12/16 05:04 IMPRESSION: NO ACUTE RADIOGRAPHIC FINDING IN THE CHEST. Assessment & Plan - Diagnosis (1) Sepsis Qualifiers: Sepsis type: sepsis due to unspecified organism Qualified Code(s): A41.9 - Sepsis, unspecified organism Is this a current diagnosis for this admission?: YesPlan: Likely secondary to UTI and criteria met on admission Patient on Cipro and flagyl (2) Dehydration Is this a current diagnosis for this admission?: YesPlan: Significantly dehydrated and appears to have resolved. Check orthostatics. (3) UTI (urinary tract infection) Qualifiers: Urinary tract infection type: acute cystitis Hematuria presence: without hematuria Qualified Code(s): N30.00 - Acute cystitis without hematuria Is this a current diagnosis for this admission?: YesPlan: Underwent CT without evidence of pyelonephritis or obstructing stone. Place on Rocephin and await culture (4) Trichomonas vaginalis infection Is this a current diagnosis for this admission?: YesPlan: Oral flagyl 500mg po tid for seven days (5) Candidiasis of female genitalia Is this a current diagnosis for this admission?: YesPlan: Fluconazole x1 (6) Tobacco abuse Is this a current diagnosis for this admission?: YesPlan: Nicotine patch prn (7) Opiate abuse, episodic Is this a current diagnosis for this admission?: YesPlan: Patient reports intentionally diverting narcotics ("for years") and also being placed on Suboxone for weaning off of large amounts of narcotics from previous treatment of PCOS and Endometriosis. (8) Left ovarian enlargement Is this a current diagnosis for this admission?: YesPlan: Appreciate pot sander imput and patient will need to follow as an outpatient for this - Time Time Spent with patient: 25-34 minutes Medications reviewed and adjusted accordingly: Yes Anticipated discharge: Home Within: within 24 hours - Inpatient Certification Medical Necessity: Need For IV Fluids, Need for IV Antibiotics Post Hospital Care: D/C Email Producer Documentation
[2016-08-13] MEDS: NORMAL SALINE 1000 ML 1,000 ML IV PRN (18:45)
[2016-08-14] MEDS: PHENAZOPYRIDINE HCL 100 MG TABLET PO SCH (06:00)
[2016-08-14] MEDS: METRONIDAZOLE 500 MG TABLET PO SCH (06:01)
[2016-08-14] MEDS: OXYCODONE-ACETAMINOPHEN 5-325 MG TABLET PO PRN (09:10)
[2016-08-14] MEDS: CIPROFLOXACIN 400 MG/D5W RTU 400 MG/200 ML RTUPB IV SCH (09:10)
[2016-08-14] MEDS: NORMAL SALINE 1000 ML 1,000 ML IV PRN (09:10)
[2016-08-14] MEDS ORDERED: FERROUS SULFATE 325 MG TABLET PO SCH (10:00)
[2016-08-14 11:05] VITALS: BP 129/69
--- NOTE | 2016-08-14 18:50 | PDOC DISCHARGE SUMMARY ---
General - Admit/Disc Date/PCP Admission Date/Primary Care Provider: 08/12/16 08:09 Discharge Date: 08/14/16 - Discharge Diagnosis (1) Sepsis Is this a current diagnosis for this admission?: Yes (2) Dehydration Is this a current diagnosis for this admission?: Yes (3) UTI (urinary tract infection) Is this a current diagnosis for this admission?: Yes (4) Trichomonas vaginalis infection Is this a current diagnosis for this admission?: Yes (5) Candidiasis of female genitalia Is this a current diagnosis for this admission?: Yes (6) Tobacco abuse Is this a current diagnosis for this admission?: Yes (7) Opiate abuse, episodic Is this a current diagnosis for this admission?: Yes (8) Left ovarian enlargement Is this a current diagnosis for this admission?: Yes (9) Bacterial vaginitis Is this a current diagnosis for this admission?: Yes - Additional Information Resuscitation Status: Full Code Discharge Diet: Regular Discharge Activity: Activity As Tolerated Home Medications: Butalb/Acetaminophen/Caffeine [Fioricet (50-325-40 mg) Tablet] 1 tab PO Q4HP PRN 08/12/16 Ciprofloxacin HCl [Cipro 500 mg Tablet] 500 mg PO BID #6 tablet 08/14/16 Ferrous Sulfate [Feosol 325 mg Tablet] 325 mg PO DAILY #90 tablet 08/14/16 Metronidazole [Flagyl 500 mg Tablet] 500 mg PO Q8 #21 tablet 08/14/16 Phenazopyridine HCl [Pyridium 100 mg Tablet] 100 mg PO Q8 #10 tablet 08/14/16 History of Present Illness History of Present Illness: May VENANCIO is a 40 year old female past medical history of PCO S and endometriosis ultimately resulting in a hysterectomy and unilateral salpingo- oophorectomy who presented to the emergency department with complaints of right lower quadrant pain. Patient reports that she started having some discomfort starting hours prior. She reports associated chills subjective fever and nausea and vomiting as well as right lower quadrant pain. Patient reports that she began having diarrhea after having her CAT scan today. She denies any hematochezia or melena. Patient reports that she takes aspirin and Fioricet at home. Department, patient is found to have a mild UTI and given a small amount of IV fluids. Patient received multiple doses of narcotics resulting in hypotension requiring the use of Narcan to bring her blood pressure back up. On review of the patient's on the [place] database for narcotics and controlled substances patient is found to be filling Suboxone as recently as June 2016. Patient reports that she had not been taking it at that time and had been diverting this medication for someone else. Patient is referred to hospital service for evaluation of sepsis. Hospital Course Hospital Course: After appropriate hydration, and 1 dose of Rocephin, patient's white count was decreased by more than half. Patient's IV fluids were continued. Patient was found to have Trichomonas, Gardnerella, and Haily. Patient was treated with fluconazole and Flagyl. ART PROFESSOR was consulted for this case and a transvaginal ultrasound was performed which revealed a mildly enlarged left ovary and a 14 mm follicular cyst. Patient is advised to follow-up with ART PROFESSOR as an outpatient and at this time they did not feel that patient was suffering from PID. Gonorrhea and Chlamydia were negative. Patient continued throughout her hospital stay to request narcotics. pain was consistently out of proportion to her physical examination. Was discharged home in stable condition. [facility] is [facility] and with ART PROFESSOR. Physical Exam Vital Signs: Temp Pulse Resp BP Pulse Ox 97.6 F 41 L 15 152/79 H 98 08/14/16 07:36 08/14/16 07:36 08/14/16 07:36 08/14/16 07:36 08/14/16 07:36 Intake & Output 08/13/16 08/14/16 08/15/16 06:59 06:59 06:59 Intake Total 4084 3694 Balance 4084 3694 Weight 54.5 kg 66.8 kg Exam: GENERAL: No acute distress nontoxic appearing HEENT: Conjunctiva clear, nonicteric, moist mucous membranes, no JVD, midline trachea RESPIRATORY: Clear to auscultation bilaterally, no wheezes, no rhonchi CARDIAC: Regular rate and rhythm, no murmurs/gallops/rubs ABDOMEN: Soft, nondistended, nontender, positive bowel sounds, no rebound, no guarding; pain is out of proportion to physical examination EXTREMETIES: no cyanosis, no clubbing, no edema NEUROLOGIC: Alert, oriented to person/place/time, cranial nerves grossly intact without focal deficits SKIN: No rash, wounds PSYCH:flat Results Laboratory Results: 08/13/16 05:49 08/13/16 05:49 08/13/16 05:49 Transferrin 196 L Impressions: Abdomen/Pelvis CT 08/11/16 00:00 IMPRESSION: NO SIGNIFICANT OR ACUTE FINDING IN THE ABDOMEN OR PELVIS ON CT SCAN WITH IV CONTRAST. Limited or Localized CT 08/11/16 17:39 IMPRESSION: NO SIGNIFICANT OR ACUTE PROCESS IN THE ABDOMEN OR PELVIS. Transvaginal US 08/12/16 00:00 IMPRESSION: Post hysterectomy Left ovary not visualized Small amount of right adnexal free fluid surrounding a normal size ovary with small follicular cysts present. Chest X-Ray 08/12/16 05:04 IMPRESSION: NO ACUTE RADIOGRAPHIC FINDING IN THE CHEST. Qualifiers PATEINT BEING DISCHARGED WITH ANY OF THE FOLLOWING DIAGNOSIS?: No Plan Time Spent: Less than 30 Minutes
== END 2016-08-14 11:17 | disposition home or self-care (01) | DRG 872 ==
LOC: ER 17:21 → EH 08-12 08:09 → UNDOADMIN 08-12 09:03 → 5 08-12 10:07 → EH 08-12 10:07
PROVIDERS: ADMIT Family Medicine; ATTEND Family Medicine
DX: A41.9 Sepsis, unspecified organism (principal); N39.0 Urinary tract infection, site not specified; A59.01 Trichomonal vulvovaginitis; B37.3 Candidiasis of vulva and vagina; E86.0 Dehydration; F11.10 Opioid abuse, uncomplicated; N83.01 Follicular cyst of right ovary; Z79.899 Other long term (current) drug therapy; F17.210 Nicotine dependence, cigarettes, uncomplicated; Z90.710 Acquired absence of both cervix and uterus
CPT/HCPCS: 36415; 71010; 74177; 76380; 76830; 80048; 80053; 80307; 81001; 82272; 82607; 82728; 82746; 83540; 83550; 83605; 83690; 83735; 84466; 85025; 85045; 86701; 87040; 87045; 87086; 87088; 87205; 87210; 87491; 87493; 87591; 88184; 88185; 89055; 93976; 96361; 96365; 96375; 96376; 99285; J0696; J0744; J1170; J1650; J1885; J2270; J2310; J3490; J7030; J7060